=== PATIENT | female | born 1995 | race Caucasian/White ===

== ENCOUNTER 2018-08-21 19:25 | Emergency (ER) | payer SELFPAY ==
[2018-08-21] MEDS ORDERED: Sulfameth/Trimethoprim DS 800-160mg TAB ONE (19:38)
[2018-08-21] MEDS ORDERED: Acetaminophen 500 MG TAB ONE (19:38)
== END 2018-08-21 19:47 | disposition home or self-care (01) ==
LOC: ERS 19:25
DX: L03.115 Cellulitis of right lower limb (principal)
CPT/HCPCS: 99281